=== PATIENT | male | born 1955 | race Caucasian/White ===

== ENCOUNTER → 2021-01-08 14:39 | Outpatient (CLI) | payer OTHER, SELFPAY ==
[2021-01-08 16:40] LABS: Hematocrit 42.1 % (40-54); Hemoglobin 13.8 g/dL (13.0-16.5); Mean Corp Hgb Conc 32.8 g/dL (32-36); Mean Corpuscular Hgb 31.2 pg (27.0-32.0); Mean Corpuscular Volume 95.2 fL (80-94); Platelet Count 270 K/mm3 (150-450); RBC Distribution Width CV 13.5 % (11.6-14.6); RBC Distribution Width SD 47.7 fl (35.1-43.9); Red Blood Count 4.42 M/mm3 (4.6-6.2); White Blood Count 5.7 K/mm3 (4.4-11.0)
[2021-01-08 16:56] LABS: Free T3 2.2 pg/mL (2.18-3.98)
[2021-01-14 10:09] LABS: Testosterone, % Free 2.53 % (1.50-4.20); Testosterone, Free 0.35 ng/dL (5.00-21.00)
[2021-01-14 14:10] LABS: Adrenocorticotropic Hormone 16.5 pg/mL (7.2-63.3); Insulin Like Growth Factor 77 ng/mL (64-240); Testosterone, Total 14 ng/dL (264-916)
== END ==
PROVIDERS: PCP Internal Medicine Infectious Disease; Referring Provider Internal Medicine Endocrinology, Diabetes & Metabolism; Visit Provider Internal Medicine Endocrinology, Diabetes & Metabolism
DX: E11.65 Type 2 diabetes mellitus with hyperglycemia (principal); E23.7 Disorder of pituitary gland, unspecified; E23.6 Other disorders of pituitary gland; Z78.9 Other specified health status
CPT/HCPCS: 36415; 82024; 84305; 84402; 84403; 84481; 85027

== ENCOUNTER 2021-07-19 12:19 | Outpatient (CLI) | payer MEDICAID, OTHER, SELFPAY ==
[2021-07-19 15:36] LABS: Vitamin D,25 Hydroxy 54.7 ng/mL
[2021-07-19 16:42] LABS: Free T3 2.2 pg/mL (2.18-3.98); Prolactin 9.4 ng/mL; T4 Free Direct 0.86 ng/dL (0.76-1.46); Thyroid Stim Hormone (TSH) 0.66 uIU/mL (0.358-3.74)
== END 2021-07-19 23:59 | disposition home or self-care (01) ==
PROVIDERS: PCP Internal Medicine Infectious Disease; Referring Provider Internal Medicine Endocrinology, Diabetes & Metabolism; Visit Provider Internal Medicine Endocrinology, Diabetes & Metabolism
DX: E23.6 Other disorders of pituitary gland (principal); E55.9 Vitamin D deficiency, unspecified
CPT/HCPCS: 36415; 82306; 82533; 84146; 84439; 84443; 84481

== ENCOUNTER → 2022-08-17 | Outpatient (CLI) | payer MEDICARE, MEDICAID, SELFPAY ==
--- NOTE | 2022-08-17 08:40 | RAD_ITS ---
STUDY: X-RAY - ORBITS REASON FOR EXAM: Male, 66 years old. History of metal in the eye TECHNIQUE: 2 view(s) of the orbits were obtained. COMPARISON: None. FINDINGS: Normal bilateral orbits without a metallic orbital foreign body. Normal visualized facial bones. Normal paranasal sinuses. The soft tissue structures are unremarkable. RAD/Orbits for Foreign Body IMPRESSION: No demonstrated metallic orbital foreign body. The patient is cleared for an MRI examination. Electronically Signed: Kamari Galeano MD at 8:50 EDT ,
--- NOTE | 2022-08-17 09:15 | MRI_ITS ---
HISTORY: increased gait imbalance; urinary incontinence, LBP TECHNIQUE: Multiplanar and multisequence MR images of the lumbar spine were obtained without intravenous contrast. 239 images. COMPARISON: None. FINDINGS: VERTEBRAE: Vertebral body heights maintained. Mild degenerative bone marrow endplate changes at multiple levels. ALIGNMENT: No anterior or posterior subluxation. Mild levoscoliosis. CONUS: Normal morphology and position of the conus medullaris at L1. Mild tortuosity and redundancy of the cauda equina nerve root secondary to spinal canal stenosis. INTERVERTEBRAL DISCS: Posterior disc bulge osteophyte complexes with facet arthropathy at multiple levels. T10-11: Mild central canal stenosis, mild right, and mild-moderate left foraminal narrowing based on the sagittal images. T11-12: Minimal narrowing of the thecal sac based on the sagittal images. T12-L1: Left paracentral disc protrusion resulting in left L1 nerve root abutment/impingement, mild central canal stenosis, moderate left, and mild right foraminal narrowing. L1-2: Very mild central canal stenosis, mild right, and moderate left foraminal narrowing. L2-3: Severe central canal stenosis with mild-moderate bilateral foraminal narrowing. L3-4: Severe central canal stenosis with moderate left foraminal narrowing and moderate-severe right foraminal narrowing with right L3 nerve root abutment/impingement. L4-5: Markedly severe central canal stenosis with moderate left and moderate-severe right foraminal narrowing with right L4 nerve root abutment/impingement. L5-S1: No significant central canal stenosis. Mild right foraminal narrowing. Mild-moderate left foraminal narrowing with left L5 nerve root abutment. SOFT TISSUES: Mild posterior soft tissue edema. No paraspinal fluid collection. MRI/Spine Lumbar (Routine) IMPRESSION: Multilevel degenerative disc disease of the lumbar spine resulting in severe spinal canal stenosis with nerve root impingement/abutment as above. Electronically Signed: Domenica Ashley MD at 11:02 EDT ,
== END | disposition home or self-care (01) ==
LOC: MRI 08:34
PROVIDERS: PCP Internal Medicine Infectious Disease; Referring Provider Psychiatry & Neurology Neurology; Visit Provider Psychiatry & Neurology Neurology
DX: R32 Unspecified urinary incontinence (principal); R26.9 Unspecified abnormalities of gait and mobility; M48.061 Spinal stenosis, lumbar region without neurogenic claudication
CPT/HCPCS: 70030; 72148

== ENCOUNTER → 2023-06-12 | Outpatient (CLI) | payer MEDICARE, MEDICAID, SELFPAY ==
--- NOTE | 2023-06-12 15:40 | RAD_ITS ---
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 FINDINGS: No acute fracture or malalignment. No blastic or lytic lesions. No radiopaque foreign body seen in the orbits. The soft tissues are unremarkable. RAD/Orbits for Foreign Body IMPRESSION: No radiopaque foreign body seen in the orbits. Electronically Signed: Michael Chambers MD at 16:27 EST ,
--- NOTE | 2023-06-12 15:45 | MRI_ITS ---
STUDY: MRI LUMBAR SPINE WITHOUT CONTRAST REASON FOR EXAM: Male, 67 years old. Low back pain; urinary incontinence; lumbar radiculopathy. TECHNIQUE: Standardized fat and water weighted pulse sequences were obtained in the sagittal and axial planes. COMPARISON: MRI lumbar spine without contrast 08/17/2022. FINDINGS: T10-T11: (Sagittal only). Normal endplates. Pronounced disc space height narrowing. Mild ventral extradural defect due to posterior bulging annulus. Normal central canal. Mild stenosis of the bilateral intervertebral neural foramina. T11-T12: (Sagittal only). Normal endplates. Mild disc space height narrowing. Mild ventral extradural defect due to posterior bulging annulus is unchanged. Normal central canal and bilateral intervertebral neural foramina. T12-L1: Normal endplates. Mild disc space height narrowing. Interval decrease in size of previously prominent left posterior pain medially and and the caudal disc protrusion. Normal central canal and right lateral recess. Mild stenosis of the left lateral recess. Mild stenosis of the left intervertebral neural foramen. Normal right intervertebral neural foramen. Normal lumbar lordosis. There is no substantial scoliosis. Normal conus medullaris that terminates at the upper L1 vertebral body level. L1-2: Normal endplates. Mild disc space height narrowing. Mild degenerative retrolisthesis of L1 on L2. No significant facet arthropathy. Normal central canal and bilateral lateral recesses. Interval decrease in small posterior bulging annulus. Normal bilateral intervertebral neural foramina. L2-3: Normal endplates. Mild disc space height narrowing. Minimal degenerative retrolisthesis of L2 on L3. Moderate right degenerative facet arthropathy. Mild left degenerative facet arthropathy. Moderately pronounced central canal stenosis with an AP canal diameter is 6 mm. This is unchanged. Normal bilateral lateral recesses. Mild stenosis of the bilateral intervertebral neural foramina. L3-4: Mixed Modic type I and type II degenerative changes of the vertebral marrow underneath the right half of the vertebral endplates. Pronounced right-sided disc space height narrowing. Moderate asymmetric degenerative facet arthropathy, right greater than left. Moderately pronounced central canal stenosis with an AP canal diameter of 6 mm is unchanged. Normal bilateral lateral recesses. Moderately pronounced stenosis of the right intervertebral neural foramen and mild stenosis of the left intervertebral neural foramen. This level is unchanged. L4-5: Modic type II degenerative vertebral marrow fat infiltration underneath the vertebral endplates. Pronounced disc space height narrowing. Moderate bilateral degenerative facet arthropathy. Prominent posterior ligamenta flava hypertrophy. Pronounced central canal stenosis with a transverse canal diameter of 3 mm and an AP canal diameter of 4 mm. This is unchanged. Normal bilateral lateral recesses. Moderately pronounced stenosis of the right intervertebral neural foramen with suspicious impingement of the right L4 nerve. This is unchanged. Moderate stenosis of the left intervertebral neural foramen without obvious impingement of the left L4 nerve. L5-S1: Normal endplates. Minimal disc space height narrowing. Moderately pronounced left degenerative facet arthropathy. Moderate right degenerative facet arthropathy. Normal central canal and bilateral lateral recesses. Moderately pronounced stenosis of the left intervertebral neural foramen with suspicious impingement of the left L5 nerve. Normal right intervertebral neural foramen. Normal visualized sacral ala. Normal visualized paraspinous soft tissue structures. MRI/Spine Lumbar (Routine) IMPRESSION: 1. Limited study since these are low resolution images. 2. Pronounced central canal stenosis at L4-L5 disc space level with an AP canal diameter of 4 mm and transverse canal diameter of 3 mm. Moderately pronounced stenosis of the right intervertebral neural foramen with suspicious impingement of the right L4 nerve. Moderate stenosis of the left intervertebral neural foramen without impingement of the left L4 nerve. This level is unchanged. 3. Moderately pronounced central canal stenosis at L3-L4 disc space level with an AP canal diameter of 6 mm and moderately pronounced stenosis of the right intervertebral neural foramen. This level is unchanged. 4. Moderately pronounced central canal stenosis at L2-L3 disc space level with an AP canal diameter of 6 mm and minimal degenerative retrolisthesis of L2 on L3. This level is unchanged. 5. Mild degenerative retrolisthesis of L1 on L2 and interval decrease in small posterior bulging annulus. 6. Interval decrease in size of left T12-L1 posterior paramedian and caudal disc protrusion. Electronically Signed: Juancarlos Murphy MD at 8:33 EST ,
== END | disposition home or self-care (01) ==
PROVIDERS: PCP Internal Medicine; Referring Provider Psychiatry & Neurology Neurology; Visit Provider Psychiatry & Neurology Neurology
DX: M48.061 Spinal stenosis, lumbar region without neurogenic claudication (principal)
CPT/HCPCS: 70030; 72148